=== PATIENT | male | born 1990 | race Caucasian/White ===

== ENCOUNTER 2018-08-28 14:00 | Outpatient (RCR) | payer OTHER, SELFPAY ==
[2018-08-14 14:06] VITALS: BP 135/60; PULSE 77; RESP 16; TEMP 36.9; BMI 28.7
--- NOTE | 2018-08-14 15:53 | PCM.WC.HP ---
(1) Traumatic open wound of left lower leg Status: Acute Current Visit: Yes Code(s): S81.802A - Unspecified open wound, left lower leg, initial encounter (2) Delayed wound healing Status: Acute Current Visit: Yes Code(s): T14.8XXD - Other injury of unspecified body region, subsequent encounter (3) Left knee pain Status: Acute Current Visit: Yes Code(s): M25.562 - Pain in left knee History of Present Illness Date of Service: 08/14/18 Chief Complaint: Opened non healing wound of left posterior lower leg. History of Wound: Wound occurred 07/12/18. 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 He went to the ED and they sutured him close. When the sutures were removed the wound opened up. He has been using B&W ointment. He went to his PCP, Dr. Howard, for evaluation and was referred to the wound center. The patient has also been having knee weakness and had an MRI of his knee. His physcial therapist is concerned about ACL injury. Past Medical History Surgical History: no surgical history Allergies/Adverse Reactions: Allergies No Known Allergies Allergy (Verified 08/14/18 14:22) Lives: Spouse/ Significant Other Smoking Status: Never smoker Tobacco Use: Non-smoker Alcohol: None Drugs: None Review of Systems Constitutional: Denies: Chills, Fever, Weight Change Eyes: Denies: Pain, Vision Change HEENT: Denies: Difficulty Hearing, Difficulty Swallowing, Sinus Congestion Cardiovascular: Denies: Chest Pain, Palpitations Respiratory: Denies: Cough, Shortness of Breath Gastrointestinal: Denies: Diarrhea, Nausea, Vomiting Genitourinary: Denies: Dysuria, Hematuria Musculoskeletal: Reports: Joint swelling, Joint Tenderness - left knee pain Skin: Reports: Wounds - left posterior/lateral leg distal to the knee Neurological: Denies: Balance problems, Blurred vision, Change in Speech, Confusion Psychiatric: Denies: Anxiety Endocrine: Denies: Heat/ Cold Intolerance, Polydipsia, Polyuria Hematologic/ Lymphatic: Denies: Easy Bruising, Easy Bleeding - Physical Exam Vital Signs Temp Pulse Resp BP 98.4 F 77 16 135/60 H 08/14/18 14:06 08/14/18 14:06 08/14/18 14:06 08/14/18 14:06 General: Alert, Oriented x3, Cooperative HEENT: Atraumatic Oral: Moist Mucosa Lungs: Clear to auscultation, Normal air movement Cardiovascular: Regular rate, Regular Rhythm Abdomen: Bowel Sounds Present Extremities: Capillary Refill Less than 3 Seconds, Edema - Left leg edema, Peripheral Pulses Normal Skin: Ulcer/ Wound - Left posterior/lateral leg wound Wound Measurements and Assessment WC - Nurse 1 - General Ulcer Measurement Start: 08/14/18 13:38 Freq: Status: Active Protocol: Activity Type Activity Date Activity User E-Sign Co-Sign Detail Recorded Client Recorded Date Recorded By Document 08/14/18 14:06 [facility] [id number] 08/14/18 14:17 [facility] 08/14/18 14:06 Wound Center Nurse 1 [Ulcer Assessment] #1- LT CALF -Combined with other wound No -Current Size (cm) - Length 4.7 -Current Size (cm) - Width 2.2 -Current Size (cm) - Depth 0.4 -Total Square Cm 10.34 -Date of Last Picture (Recall this 08/14/18 field) -Photo Taken Yes -Epithelialization None Present -Tunneling No -Undermining/Tunneling No -Circular Undermining No -Classification - Thickness Full Thickness without Exposed Support Structure -Exudate Amt Medium -Exudate Type Serosanguineous -Wound Margin Distinct, Outline Attached -Granulation Amt Medium (34-66%) -Granulation Quality [place] -Slough/Fibrin Yes -Necrosis Amt Medium (34-66%) -Necrotic Tissue Type Adherent Slough -Texture (Ashley-wound Skin Appearance) Assessed Scarring -Moisture (Ashley-wound Skin Appearance Assessed ) -Color (Ashley-wound Skin Appearance) Assessed Erythema -Temperature (Ashley-wound Skin No Abnormality Appearance) (Pt Warm) -Tenderness on Palpation (Ashley-wound Yes Skin Appearance) -Ulcer Cleansing Rinsed/ Irrigated with Saline -Foul Odor after Cleansing No -Anesthetic Used 5% Lidocaine Gel [Edema Assessment] -Lower Limb Edema Present No -Right Calf (cm) 41 -Right Ankle (cm) 22.5 -Left Calf (cm) 41 -Left Ankle (cm) 22 WC - Nurse 2 - General Ulcer CM Notes Start: 08/14/18 13:38 Freq: Status: Active Protocol: Activity Type Activity Date Activity User E-Sign Co-Sign Detail Recorded Client Recorded Date Recorded By Document 08/14/18 15:06 [email or web address] [id number] 08/14/18 15:15 08/14/18 15:06 Wound Center Nurse 2 [Procedure/Treatment] #1- LT CALF -Time 15:06 -Correct Patient Yes -Correct Side, Site, Position Yes -Correct Procedure Yes -Procedure Performed Yes -Type of Procedure Debridement -Clinical Debridement Subcutaneous -Post Debridement Size (cm) - Length 4.5 -Post Debridement Size (cm) - Width 3.0 -Post Debridement Size (cm) - Depth 0.7 -Total Square Cm 13.50 -Wound/Ulcer Outcome Not Healed -Ulcer Cleansing Rinsed/ Irrigated with Saline -Foul Odor after Cleansing No -Bioengineered Tissue No -Bleeding Controlled with Pressure -Offloading No -Treatment Response Procedure Tolerated Well [See Physician Procedure note for Specifics] Pain Scale: 0-10 Numeric [Pain] -Is Patient Pain Free? Yes Musculoskeletal: No Tenderness to Palpation of Joints or Extremities Neurological: Neuro grossly intact Psych/Mental Status: Normal Affect, Appropriate Debridement Note Post-Debridement Measurements/Treatment WC - Nurse 2 - General Ulcer CM Notes Start: 08/14/18 13:38 Freq: Status: Active Protocol: Activity Type Activity Date Activity User E-Sign Co-Sign Detail Recorded Client Recorded Date Recorded By Document 08/14/18 15:06 [id number] 08/14/18 15:15 08/14/18 15:06 Wound Center Nurse 2 #1- LT CALF -Time 15:06 -Correct Patient Yes -Correct Side, Site, Position Yes -Correct Procedure Yes -Procedure Performed Yes -Type of Procedure Debridement -Clinical Debridement Subcutaneous -Post Debridement Size (cm) - Length 4.5 -Post Debridement Size (cm) - Width 3.0 -Post Debridement Size (cm) - Depth 0.7 -Total Square Cm 13.50 -Wound/Ulcer Outcome Not Healed -Ulcer Cleansing Rinsed/ Irrigated with Saline -Foul Odor after Cleansing No -Bioengineered Tissue No -Bleeding Controlled with Pressure -Offloading No -Treatment Response Procedure Tolerated Well Pain Scale: 0-10 Numeric Is Patient Pain Free? Yes Wound debrided: Left posterior/lateral leg Laterality: Left Type of Debridement: Excisional debridement Anesthesia Used: 4% Lidocaine Solution Depth: Down to and including healthy tissue, in the subcutaneous layer Percentage of wound debrided: 100 Instrument Used: 7mm curette Tissue Removed: Subcutaneous tissue and slough, used snips remove necrotic edge tissue Severity: Fat Layer Exposed Amount of bleeding with debridement: Mild Bleeding Controlled with: Pressure Patient tolerated procedure well Assessment/Plan Active Problems Traumatic open wound of left lower leg (Acute) Delayed wound healing (Acute) Left knee pain (Acute) Assessment: 1. Traumatic open wound of left lower leg. 2. Delayed wound healing. 3. Left knee pain Plan: Patient was seen and evaluated in the wound center today. A subcutaneous debridement was performed today and the patient tolerated it well. A wound culture was obtained from the wound. Treatment with antibiotics may be necessary if the culture comes back positive with bacterial growth. The patient had an MRI today of his knee. Will try to obtain the report from [facility]. Wound care will consist of daily dressing changes with aquacel silver topped with gauze since the patient states it is draining and requires changes several times per day. Will apply double layer tubigrip to the left leg. He is to wear the compression daily while working. He works on his feet for up to 12 hours a day. He is to try to elevate his leg several times throughout the day. He will follow up in one week to the wound center. Code Visit Office Visits / Consults: [id number] OV L4 Est - 25 modifier 111xxx-113xx: [id number] Tanika subq tissue 20 sq cm/<
--- NOTE | 2018-08-14 15:57 | HP.PCM_ITS ---
(1) Traumatic open wound of left lower leg Status: Acute Current Visit: Yes Code(s): S81.802A - Unspecified open wound, left lower leg, initial encounter (2) Delayed wound healing Status: Acute Current Visit: Yes Code(s): T14.8XXD - Other injury of unspecified body region, subsequent encounter (3) Left knee pain Status: Acute Current Visit: Yes Code(s): M25.562 - Pain in left knee History of Present Illness Date of Service: 08/14/18 Chief Complaint: Opened non healing wound of left posterior lower leg. History of Wound: Wound occurred 07/12/18. 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 He went to the ED and they sutured him close. When the sutures were removed the wound opened up. He has been using B&W ointment. He went to his PCP, Dr. Howard, for evaluation and was referred to the wound center. The patient has also been having knee weakness and had an MRI of his knee. His physcial therapist is concerned about ACL injury. Past Medical History Surgical History: no surgical history Allergies/Adverse Reactions: Allergies No Known Allergies Allergy (Verified 08/14/18 14:22) Lives: Spouse/ Significant Other Smoking Status: Never smoker Tobacco Use: Non-smoker Alcohol: None Drugs: None Review of Systems Constitutional: Denies: Chills, Fever, Weight Change Eyes: Denies: Pain, Vision Change HEENT: Denies: Difficulty Hearing, Difficulty Swallowing, Sinus Congestion Cardiovascular: Denies: Chest Pain, Palpitations Respiratory: Denies: Cough, Shortness of Breath Gastrointestinal: Denies: Diarrhea, Nausea, Vomiting Genitourinary: Denies: Dysuria, Hematuria Musculoskeletal: Reports: Joint swelling, Joint Tenderness - left knee pain Skin: Reports: Wounds - left posterior/lateral leg distal to the knee Neurological: Denies: Balance problems, Blurred vision, Change in Speech, Confusion Psychiatric: Denies: Anxiety Endocrine: Denies: Heat/ Cold Intolerance, Polydipsia, Polyuria Hematologic/ Lymphatic: Denies: Easy Bruising, Easy Bleeding - Physical Exam Vital Signs Temp Pulse Resp BP 98.4 F 77 16 135/60 H 08/14/18 14:06 08/14/18 14:06 08/14/18 14:06 08/14/18 14:06 General: Alert, Oriented x3, Cooperative HEENT: Atraumatic Oral: Moist Mucosa Lungs: Clear to auscultation, Normal air movement Cardiovascular: Regular rate, Regular Rhythm Abdomen: Bowel Sounds Present Extremities: Capillary Refill Less than 3 Seconds, Edema - Left leg edema, Peripheral Pulses Normal Skin: Ulcer/ Wound - Left posterior/lateral leg wound Wound Measurements and Assessment WC - Nurse 1 - General Ulcer Measurement Start: 08/14/18 13:38 Freq: Status: Active Protocol: Activity Type Activity Date Activity User E-Sign Co-Sign Detail Recorded Client Recorded Date Recorded By Document 08/14/18 14:06 [facility] [id number] 08/14/18 14:17 [facility] 08/14/18 14:06 Wound Center Nurse 1 [Ulcer Assessment] #1- LT CALF -Combined with other wound No -Current Size (cm) - Length 4.7 -Current Size (cm) - Width 2.2 -Current Size (cm) - Depth 0.4 -Total Square Cm 10.34 -Date of Last Picture (Recall this 08/14/18 field) -Photo Taken Yes -Epithelialization None Present -Tunneling No -Undermining/Tunneling No -Circular Undermining No -Classification - Thickness Full Thickness without Exposed Support Structure -Exudate Amt Medium -Exudate Type Serosanguineous -Wound Margin Distinct, Outline Attached -Granulation Amt Medium (34-66%) -Granulation Quality [place] -Slough/Fibrin Yes -Necrosis Amt Medium (34-66%) -Necrotic Tissue Type Adherent Slough -Texture (Ashley-wound Skin Appearance) Assessed Scarring -Moisture (Ashley-wound Skin Appearance Assessed ) -Color (Ashley-wound Skin Appearance) Assessed Erythema -Temperature (Ashley-wound Skin No Abnormality Appearance) (Pt Warm) -Tenderness on Palpation (Ashley-wound Yes Skin Appearance) -Ulcer Cleansing Rinsed/ Irrigated with Saline -Foul Odor after Cleansing No -Anesthetic Used 5% Lidocaine Gel [Edema Assessment] -Lower Limb Edema Present No -Right Calf (cm) 41 -Right Ankle (cm) 22.5 -Left Calf (cm) 41 -Left Ankle (cm) 22 WC - Nurse 2 - General Ulcer CM Notes Start: 08/14/18 13:38 Freq: Status: Active Protocol: Activity Type Activity Date Activity User E-Sign Co-Sign Detail Recorded Client Recorded Date Recorded By Document 08/14/18 15:06 JF [id number] 08/14/18 15:15 08/14/18 15:06 Wound Center Nurse 2 [Procedure/Treatment] #1- LT CALF -Time 15:06 -Correct Patient Yes -Correct Side, Site, Position Yes -Correct Procedure Yes -Procedure Performed Yes -Type of Procedure Debridement -Clinical Debridement Subcutaneous -Post Debridement Size (cm) - Length 4.5 -Post Debridement Size (cm) - Width 3.0 -Post Debridement Size (cm) - Depth 0.7 -Total Square Cm 13.50 -Wound/Ulcer Outcome Not Healed -Ulcer Cleansing Rinsed/ Irrigated with Saline -Foul Odor after Cleansing No -Bioengineered Tissue No -Bleeding Controlled with Pressure -Offloading No -Treatment Response Procedure Tolerated Well [See Physician Procedure note for Specifics] Pain Scale: 0-10 Numeric [Pain] -Is Patient Pain Free? Yes Musculoskeletal: No Tenderness to Palpation of Joints or Extremities Neurological: Neuro grossly intact Psych/Mental Status: Normal Affect, Appropriate Debridement Note Post-Debridement Measurements/Treatment WC - Nurse 2 - General Ulcer CM Notes Start: 08/14/18 13:38 Freq: Status: Active Protocol: Activity Type Activity Date Activity User E-Sign Co-Sign Detail Recorded Client Recorded Date Recorded By Document 08/14/18 15:06 [id number] 08/14/18 15:15 08/14/18 15:06 Wound Center Nurse 2 #1- LT CALF -Time 15:06 -Correct Patient Yes -Correct Side, Site, Position Yes -Correct Procedure Yes -Procedure Performed Yes -Type of Procedure Debridement -Clinical Debridement Subcutaneous -Post Debridement Size (cm) - Length 4.5 -Post Debridement Size (cm) - Width 3.0 -Post Debridement Size (cm) - Depth 0.7 -Total Square Cm 13.50 -Wound/Ulcer Outcome Not Healed -Ulcer Cleansing Rinsed/ Irrigated with Saline -Foul Odor after Cleansing No -Bioengineered Tissue No -Bleeding Controlled with Pressure -Offloading No -Treatment Response Procedure Tolerated Well Pain Scale: 0-10 Numeric Is Patient Pain Free? Yes Wound debrided: Left posterior/lateral leg Laterality: Left Type of Debridement: Excisional debridement Anesthesia Used: 4% Lidocaine Solution Depth: Down to and including healthy tissue, in the subcutaneous layer Percentage of wound debrided: 100 Instrument Used: 7mm curette Tissue Removed: Subcutaneous tissue and slough, used snips remove necrotic edge tissue Severity: Fat Layer Exposed Amount of bleeding with debridement: Mild Bleeding Controlled with: Pressure Patient tolerated procedure well Assessment/Plan Active Problems Traumatic open wound of left lower leg (Acute) Delayed wound healing (Acute) Left knee pain (Acute) Assessment: 1. Traumatic open wound of left lower leg. 2. Delayed wound healing. 3. Left knee pain Plan: Patient was seen and evaluated in the wound center today. A subcutaneous debridement was performed today and the patient tolerated it well. A wound culture was obtained from the wound. Treatment with antibiotics may be necessary if the culture comes back positive with bacterial growth. The patient had an MRI today of his knee. Will try to obtain the report from [facility]. Wound care will consist of daily dressing changes with aquacel silver topped with gauze since the patient states it is draining and requires changes several times per day. Will apply double layer tubigrip to the left leg. He is to wear the compression daily while working. He works on his feet for up to 12 hours a day. He is to try to elevate his leg several times throughout the day. He will follow up in one week to the wound center. Code Visit Office Visits / Consults: [id number] OV L4 Est - 25 modifier 111xxx-113xx: [id number] Tanika subq tissue 20 sq cm/<
[2018-08-21 14:09] VITALS: BP 116/67; PULSE 69; RESP 18; TEMP 37.3; BMI 28.7
--- NOTE | 2018-08-21 16:04 | PN.PCM_ITS ---
(1) Traumatic open wound of left lower leg Status: Acute Current Visit: Yes Code(s): S81.802A - Unspecified open wound, left lower leg, initial encounter (2) Delayed wound healing Status: Acute Current Visit: Yes Code(s): T14.8XXD - Other injury of unspecified body region, subsequent encounter (3) Left knee pain Status: Acute Current Visit: Yes Code(s): M25.562 - Pain in left knee Type of Wound Date of Service: 08/21/18 Chief Complaint: Opened non healing wound of left posterior lower leg. History of Wound: Wound occurred 07/12/18. 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 He went to the ED and they sutured him close. When the sutures were removed the wound opened up. He has been using B&W ointment. He went to his PCP, Dr. Howard, for eval uation and was referred to the wound center. The patient has also been having knee weakness and had an MRI of his knee. His physcial therapist is concerned about ACL injury. Progress of Wound: Improved. - Physical Exam Vital Signs Temp Pulse Resp BP 99.1 F 69 18 116/67 08/21/18 14:09 08/21/18 14:09 08/21/18 14:09 08/21/18 14:09 General: Alert, Oriented x3, Cooperative HEENT: Atraumatic Oral: Moist Mucosa Lungs: Normal air movement Cardiovascular: Regular rate Extremities: No edema - improved with compression, Capillary Refill Less than 3 Seconds, Peripheral Pulses Normal Skin: Ulcer/ Wound - Left posterior lateral proximal lower leg Wound Measurements and Assessment WC - Nurse 1 - General Ulcer Measurement Start: 08/14/18 13:38 Freq: Status: Active Protocol: Activity Type Activity Date Activity User E-Sign Co-Sign Detail Recorded Client Recorded Date Recorded By Document 08/21/18 14:09 DL [id number] 08/21/18 14:14 DL 08/21/18 14:09 Wound Center Nurse 1 [Ulcer Assessment] #1- LT CALF -Current Size (cm) - Length 4.3 -Current Size (cm) - Width 2.3 -Current Size (cm) - Depth 0.4 -Total Square Cm 9.89 -Photo Taken No -Exudate Amt Small -Exudate Type Serosanguineous -Wound Margin Distinct, Outline Attached -Granulation Amt Large (67-100%) -Granulation Quality Red -Necrosis Amt Small (1-33%) -Necrotic Tissue Type Adherent Slough -Structure Exposed N/A -Texture (Ashley-wound Skin Appearance) Scarring -Moisture (Ashley-wound Skin Appearance No Abnormality ) -Color (Ashley-wound Skin Appearance) Rubor -Temperature (Ashley-wound Skin No Abnormality Appearance) (Pt Warm) -Tenderness on Palpation (Ashley-wound No Skin Appearance) -Ulcer Cleansing Rinsed/ Irrigated with Saline [Edema Assessment] -Left Calf (cm) 40.5 -Left Ankle (cm) 22 - Nurse 2 - General Ulcer CM Notes Start: 08/14/18 13:38 Freq: Status: Active Protocol: Activity Type Activity Date Activity User E-Sign Co-Sign Detail Recorded Client Recorded Date Recorded By Document 08/21/18 14:45 [id number] 08/21/18 14:50 08/21/18 14:45 Wound Center Nurse 2 [Procedure/Treatment] #1- LT CALF -Time 14:46 -Correct Patient Yes -Correct Side, Site, Position Yes -Correct Procedure Yes -Procedure Performed Yes -Type of Procedure Debridement -Clinical Debridement Subcutaneous -Post Debridement Size (cm) - Length 4.2 -Post Debridement Size (cm) - Width 2.3 -Post Debridement Size (cm) - Depth 0.3 -Total Square Cm 9.66 -Wound/Ulcer Outcome Not Healed -Ulcer Cleansing Rinsed/ Irrigated with Saline -Foul Odor after Cleansing No -Bioengineered Tissue No -Bleeding Controlled with Pressure -Offloading No -Treatment Response Procedure Tolerated Well [See Physician Procedure note for Specifics] Pain Scale: 0-10 Numeric [Pain] -Is Patient Pain Free? Yes Musculoskeletal: No Tenderness to Palpation of Joints or Extremities Neurological: Neuro grossly intact Psych/Mental Status: Normal Affect, Appropriate Debridement Note Post-Debridement Measurements/Treatment - Nurse 2 - General Ulcer CM Notes Start: 08/14/18 13:38 Freq: Status: Active Protocol: Activity Type Activity Date Activity User E-Sign Co-Sign Detail Recorded Client Recorded Date Recorded By Document 08/14/18 15:06 [id number] 08/14/18 15:15 Document 08/21/18 14:45 [id number] 08/21/18 14:50 08/14/18 08/21/18 15:06 14:45 Wound Center Nurse 2 #1- LT CALF -Time 15:06 14:46 -Correct Patient Yes Yes -Correct Side, Site, Position Yes Yes -Correct Procedure Yes Yes -Procedure Performed Yes Yes -Type of Procedure Debridement Debridement -Clinical Debridement Subcutaneous Subcutaneous -Post Debridement Size (cm) - Length 4.5 4.2 -Post Debridement Size (cm) - Width 3.0 2.3 -Post Debridement Size (cm) - Depth 0.7 0.3 -Total Square Cm 13.50 9.66 -Wound/Ulcer Outcome Not Healed Not Healed -Ulcer Cleansing Rinsed/ Rinsed/ Irrigated with Irrigated with Saline Saline -Foul Odor after Cleansing No No -Bioengineered Tissue No No -Bleeding Controlled with Pressure Pressure -Offloading No No -Treatment Response Procedure Procedure Tolerated Well Tolerated Well Pain Scale: 0-10 Numeric Is Patient Pain Free? Yes Yes Wound debrided: Left posterior lateral proximal lower leg Laterality: Left Type of Debridement: Excisional debridement Anesthesia Used: 4% Lidocaine Solution Depth: Down to and including healthy tissue, in the subcutaneous layer Percentage of wound debrided: 100 Instrument Used: 7mm curette Tissue Removed: Subcutaneous tissue and slough Severity: Fat Layer Exposed Amount of bleeding with debridement: Mild Bleeding Controlled with: Pressure Patient tolerated procedure well Assessment/Plan Active Problems Traumatic open wound of left lower leg (Acute) Delayed wound healing (Acute) Left knee pain (Acute) Assessment: 1. Traumatic open wound of left lower leg. 2. Delayed wound healing. 3. Left knee pain Plan: Patient was seen and evaluated in the wound center today. A subcutaneous debridement was performed today and the patient tolerated it well. A wound culture was obtained on 08/14/18 which showed Streptococcus agalactiae, Enterococcus faecalis and Anaerobic cocci. He was placed on Augmentin. The patient had an MRI of his knee, he is going to [facility] today to find out his results and treatment. Wound care will continue daily dressing changes with aquacel silver topped with gauze since the patient states it is draining and requires changes several times per day. He is to moisten the silver dressing because he it very dry around the edges of the wound. Will apply single layer tubigrip to the left leg. He is to wear the compression daily while working. He really is not liking the double layer tubigrip. He works on his feet for up to 12 hours a day. He is to try to elevate his leg several times throughout the day. He will follow up in one week to the wound center. Code Visit 111xxx-113xx: [id number] Tanika subq tissue 20 sq cm/<
[2018-08-28 14:42] VITALS: BP 121/71; PULSE 72; RESP 18; TEMP 36.9; BMI 28.7
--- NOTE | 2018-08-28 17:07 | PCM.WC.PN ---
(1) Traumatic open wound of left lower leg Status: Acute Current Visit: Yes Code(s): S81.802A - Unspecified open wound, left lower leg, initial encounter (2) Delayed wound healing Status: Acute Current Visit: Yes Code(s): T14.8XXD - Other injury of unspecified body region, subsequent encounter (3) Left knee pain Status: Acute Current Visit: Yes Code(s): M25.562 - Pain in left knee Type of Wound Date of Service: 08/28/18 Chief Complaint: Opened non healing wound of left posterior lower leg. History of Wound: Wound occurred 07/12/18. 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 He went to the ED and they sutured him close. When the sutures were removed the wound opened up. He has been using [employer] ointment. He went to his PCP, Dr. Howard, for evaluation and was referred to the wound center. The patient has also been having knee weakness and had an MRI of his knee. His physcial therapist is concerned about ACL injury. Progress of Wound: Minimal improvement. - Physical Exam Vital Signs Temp Pulse Resp BP 98.4 F 72 18 121/71 H 08/28/18 14:42 08/28/18 14:42 08/28/18 14:42 08/28/18 14:42 General: Alert, Oriented x3, Cooperative HEENT: Atraumatic Oral: Moist Mucosa Lungs: Normal air movement Cardiovascular: Regular rate Extremities: No edema, Capillary Refill Less than 3 Seconds, Peripheral Pulses Normal Skin: Ulcer/ Wound - Left lateral/posterior proximal lower leg Wound Measurements and Assessment WC - Nurse 1 - General Ulcer Measurement Start: 08/14/18 13:38 Freq: Status: Active Protocol: Activity Type Activity Date Activity User E-Sign Co-Sign Detail Recorded Client Recorded Date Recorded By Document 08/28/18 14:42 DL [id number] 08/28/18 14:47 DL 08/28/18 14:42 Wound Center Nurse 1 [Ulcer Assessment] #1- LT CALF -Current Size (cm) - Length 3.6 -Current Size (cm) - Width 2 -Current Size (cm) - Depth 0.4 -Total Square Cm 7.2 -Photo Taken No -Exudate Amt Small -Exudate Type Serosanguineous -Wound Margin Distinct, Outline Attached -Granulation Amt Large (67-100%) -Granulation Quality Red -Necrosis Amt Small (1-33%) -Necrotic Tissue Type Adherent Slough -Structure Exposed N/A -Texture (Ashley-wound Skin Appearance) Scarring -Moisture (Ashley-wound Skin Appearance No Abnormality ) -Color (Ashley-wound Skin Appearance) No Abnormality -Temperature (Ashley-wound Skin No Abnormality Appearance) (Pt Warm) -Ulcer Cleansing Rinsed/ Irrigated with Saline -Foul Odor after Cleansing No -Anesthetic Used 5% Lidocaine Gel [Edema Assessment] -Left Calf (cm) 41 -Left Ankle (cm) 23.5 - Nurse 2 - General Ulcer CM Notes Start: 08/14/18 13:38 Freq: Status: Active Protocol: Activity Type Activity Date Activity User E-Sign Co-Sign Detail Recorded Client Recorded Date Recorded By Document 08/28/18 14:55 [id number] 08/28/18 15:01 08/28/18 14:55 Wound Center Nurse 2 [Procedure/Treatment] #1- LT CALF -Time 14:56 -Correct Patient Yes -Correct Side, Site, Position Yes -Correct Procedure Yes -Procedure Performed Yes -Type of Procedure Debridement -Clinical Debridement Subcutaneous -Post Debridement Size (cm) - Length 4.0 -Post Debridement Size (cm) - Width 2.4 -Post Debridement Size (cm) - Depth 0.3 -Total Square Cm 9.60 -Wound/Ulcer Outcome Not Healed -Ulcer Cleansing Rinsed/ Irrigated with Saline -Foul Odor after Cleansing No -Bioengineered Tissue No -Bleeding Controlled with Pressure -Offloading No -Treatment Response Procedure Tolerated Well [See Physician Procedure note for Specifics] Pain Scale: 0-10 Numeric [Pain] -Is Patient Pain Free? Yes Musculoskeletal: Tenderness - Left knee tenderness Neurological: Neuro grossly intact Psych/Mental Status: Normal Affect, Appropriate Debridement Note Post-Debridement Measurements/Treatment - Nurse 2 - General Ulcer CM Notes Start: 08/14/18 13:38 Freq: Status: Active Protocol: Activity Type Activity Date Activity User E-Sign Co-Sign Detail Recorded Client Recorded Date Recorded By Document 08/14/18 15:06 [id number] 08/14/18 15:15 Document 08/21/18 14:45 [id number] 08/21/18 14:50 Document 08/28/18 14:55 [id number] 08/28/18 15:01 08/14/18 08/21/18 08/28/18 15:06 14:45 14:55 Wound Center Nurse 2 #1- LT CALF -Time 15:06 14:46 14:56 -Correct Patient Yes Yes Yes -Correct Side, Site, Position Yes Yes Yes -Correct Procedure Yes Yes Yes -Procedure Performed Yes Yes Yes -Type of Procedure Debridement Debridement Debridement -Clinical Debridement Subcutaneous Subcutaneous Subcutaneous -Post Debridement Size (cm) - Length 4.5 4.2 4.0 -Post Debridement Size (cm) - Width 3.0 2.3 2.4 -Post Debridement Size (cm) - Depth 0.7 0.3 0.3 -Total Square Cm 13.50 9.66 9.60 -Wound/Ulcer Outcome Not Healed Not Healed Not Healed -Ulcer Cleansing Rinsed/ Rinsed/ Rinsed/ Irrigated with Irrigated with Irrigated with Saline Saline Saline -Foul Odor after Cleansing No No No -Bioengineered Tissue No No No -Bleeding Controlled with Pressure Pressure Pressure -Offloading No No No -Treatment Response Procedure Procedure Procedure Tolerated Well Tolerated Well Tolerated Well Pain Scale: 0-10 Numeric Is Patient Pain Free? Yes Yes Yes Wound debrided: Left posterior lateral proximal lower leg Laterality: Left Type of Debridement: Excisional debridement Anesthesia Used: 4% Lidocaine Solution Depth: Down to and including healthy tissue, in the subcutaneous layer Percentage of wound debrided: 100 Instrument Used: 7mm curette Tissue Removed: Subcutaneous tissue and slough Severity: Fat Layer Exposed Amount of bleeding with debridement: Mild Bleeding Controlled with: Pressure Patient tolerated procedure well Assessment/Plan Active Problems Traumatic open wound of left lower leg (Acute) Delayed wound healing (Acute) Left knee pain (Acute) Assessment: 1. Traumatic open wound of left lower leg. 2. Delayed wound healing. 3. Left knee pain Plan: Patient was seen and evaluated in the wound center today. A subcutaneous debridement was performed today and the patient tolerated it well. A wound culture was obtained on 08/14/18 which showed Streptococcus agalactiae, Enterococcus faecalis and Anaerobic cocci. He was placed on Augmentin, which he continues to take. The patient had an MRI of his knee. He is supposed to be using crutches to help with healing of the bone, he currently is not using his crutches. Wound care will change to daily dressing changes with Fibracol topped with gauze. He is having increased growth around the edges. Hopefully the Fibracol will help keep the edges from being so dry. If the hypergranulation around the edges of the wound does not improve, he may need to have a surgical debridement to help with wound healing. Will apply single layer tubigrip to the left leg. He works on his feet for up to 12 hours a day. He is to try to elevate his leg several times throughout the day. He will follow up in one week to the wound center. Code Visit [id number]: [id number] Tanika subq tissue 20 sq cm/<
== END 2018-09-04 23:59 ==
LOC: WC 14:00
PROVIDERS: Family Provider Family Medicine; PCP Family Medicine; Visit Provider Nurse Practitioner Family
DX: S81.832A Puncture wound without foreign body, left lower leg, initial encounter (principal); W22.8XXA Striking against or struck by other objects, initial encounter; R53.1 Weakness
CPT/HCPCS: 11042; 87070; 87075; 87077; 87186; 87205; 99203; G0463